=== PATIENT | male | born 1930 | race Caucasian/White ===

== ENCOUNTER 2019-03-23 00:52 | Observation (INO) ==
[2019-03-23] MEDS ORDERED: Naloxone 0.4 MG/ML INJ IVP PRN ×2 (03:42→04:10)
--- NOTE | 2019-03-23 03:43 | Internal Med History&Physical ---
<Charlie Sen S - Last Filed: 03/23/19 04:56> Date of Encounter: 03/23/19 Time of Encounter: 04:56 Internal Medicine - H&P: HPI Chief complaint: throwing up blood Admitted From: Emergency Dept Plans for Post Hospital Care: Home History of present illness: Mr. Miranda is a 88 year old male with PMH of stroke, HTN and HLD. His stroke was 5 yrs ago and he states that he hadn't seen a doctor in over 40 yrs. e is a osiel transfer with the chief complaint of vomiting blood. Pt reported that he had abrupt onset of coughing and blood started to come up. He states it was dark coffee ground in color. He has never had this before. He denies excessive nsaid or aspirin use. He denies history of PUD. He has had some coughing the last few days but denies any sputum production, fevers/chills. He fell on Tuesday and has had severe back pain since. He denies ever having previous GI workup, EGD or colonoscopy. He was found to have an occult (+) blood test at [facility] of gastric contents. Hemoglobin and hematocrit were stable at that time. He was transferred to [facility] for further workup. Past Med Surg Social Fam HX - Past Medical History Medical history: CVA, hyperlipidemia, hypertension - Social History Smoking Status: Never smoker Alcohol use: none Drug use: none Occupational status: previously employed Current living situation: Home - Independent Internal Medicine - H&P: Meds Allergy/AdvReac Type Severity Reaction Status Date / Time No Known Allergies Allergy Verified 03/23/19 04:30 All Systems PM: A 10-system review of systems was performed and is negative for pertinent findings except as documented above in the HPI. - Constitutional Constitutional: fatigue - EENT Eyes: no blurry vision, no change in vision Ears: no tinnitus Nose, mouth and throat: no bleeding gums, no epistaxis - Cardiovascular Cardiovascular ROS IM: no chest pain, no dyspnea, no dyspnea on exertion - Respiratory Respiratory: hemoptysis, no cough, no dyspnea, no dyspnea on exertion - Gastrointestinal Gastrointestinal: hematemesis, vomiting, no abdominal pain, no diarrhea, no hematochezia, no melena - Genitourinary Genitourinary ROS male: no dysuria, no hematuria - Musculoskeletal Musculoskeletal ROS IM: back pain, numbness, tingling - Integumentary Integumentary IM: no rash, no skin ulcer - Neurological Neurological ROS: focal weakness, weakness, no dizziness, no numbness, no tremor(s) - Hematologic/Lymphatic Hematologic/Lymphatic: no easy bleeding, no easy bruising - Constitutional General appearance: Present: mild distress, A&O X 3, pleasant, answers questions appropriately Exam: x - Head Head exam: Present: atraumatic, normocephalic - Eye Eye exam: Present: EOMI, sclera anicteric - ENT ENT exam: Present: mucous membranes dry Additional comments: dried blood in oral cavity and lips - Neck Neck exam general surgery: Present: supple, trachea midline - Respiratory Respiratory exam: Present: CTAB. Absent: accessory muscle use, prolonged expiratory phase, respiratory distress, rhonchi, stridor, wheezes, tachypnea - Cardiovascular Cardiovascular exam: Present: RRR, +S1, +S2. Absent: JVD - GI/Abdominal GI/Abdominal exam: Present: soft, no peritoneal signs. Absent: firm, guarding, mass, rebound, rigid, tenderness - Extremities Exam Extremities exam: Present: normal inspection, warm, radial pulses palpable and symmetrical. Absent: normal capillary refill (diminished capillary refill), mottling, pedal edema, tenderness - Back Exam Back exam: Present: tenderness - Neurological Exam Neurological exam: Present: alert, oriented X3. Absent: strengths equal and symetr throughout (decreased strength left more than right) - Psychiatric Psychiatric exam: Present: normal affect, normal mood - Skin Skin exam: Present: diaphoretic, dry, intact, warm Internal Med - H&P Results - Labs CBC & Chem 7: 03/23/19 04:19 03/23/19 04:19 - Assessment and Plan (1) Hematemesis Current Visit: Yes Status: Acute Assessment and plan: Pt transfered from [facility] for the chief complaint of throwing up blood - gastric occult blood was positive - H&H has remained stable, current hemoglobin 13.5 - INR 1.2 CT abdomen showed acute appearing mild compression fx of T12 vertebral body - probable small bowel ileus - probable constipation no evidence for bowel obstruction - probably bibasilar PNA, pt remains without symptoms and will not initiate abx at this time Plan: - 100cc/hr 0.9% NS - continue protonix drip - continue telemetry monitoring - stat type and cross - zofran prn nausea - consult to GI - transfuse for hgb <7 - FEN: NPO - DVT prophylaxis: scd - dispo: GI to see PTOT to see, pt lives home alone Qualifiers: Nausea presence: with nausea Qualified Code(s): K92.0 - Hematemesis (2) Hypertension Current Visit: No Status: Chronic Assessment and plan: on home anti-hypertensive. will con't when med reconciled. 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 will con't when med reconciled. Qualifiers: Hyperlipidemia type: unspecified Qualified Code(s): E78.5 - Hyperlipidemia, unspecified (5) DVT prophylaxis Current Visit: Yes Status: Acute Assessment and plan: scd (6) Back pain Current Visit: Yes Status: Acute Assessment and plan: Pt had fall on tuesday, acute appearing mild compression deformity of T12 vertebral body noted on CT scan. Pain control w oxycodone. Qualifiers: Back pain location: thoracic back pain Chronicity: acute Back pain laterality: midline Qualified Code(s): M54.6 - Pain in thoracic spine (7) Stroke Current Visit: No Status: Chronic Assessment and plan: Had past hx of stroke with left sided residual weakness. Qualifiers: CVA mechanism: unspecified Qualified Code(s): I63.9 - Cerebral infarction, unspecified (8) Thrombocytopenia Current Visit: Yes Status: Acute Assessment and plan: Platelets noted to be 126, no baseline available. (9) Renal cyst Current Visit: Yes Status: Acute Assessment and plan: noted on CT scan, 10mm left renal cyst - renal imaging recommended for further detail (10) Elevated LFTs Current Visit: Yes Status: Acute Assessment and plan: AST 334, ALT 86. Total bilirubin 2.4, indirect/direct not back yet. Obtain RUQ US and hepatitis profile. - Time Spent With Patient Total time spent is greater than 50% in coordination of care (as documented) at patient's floor/unit and/or counseling patient: 25 - 35 minutes <Alexsander Tubbs - Last Filed: 03/23/19 05:19> Date of Encounter: 03/23/19 Internal Medicine - H&P: HPI Chief complaint: dark vomit All Systems PM: A 10-system review of systems was performed and is negative for pertinent findings except as documented above in the HPI. - Constitutional Vitals: Temp Pulse Resp BP Pulse Ox 97.6 F 71 16 105/63 96 03/23/19 04:41 03/23/19 04:41 03/23/19 04:41 03/23/19 04:41 03/23/19 04:41 Internal Med - H&P Results - Labs CBC & Chem 7: 03/23/19 04:19 03/23/19 04:19 Labs: Short CBC 03/23/19 Range/Units 04:19 WBC 13.9 H (4.3-11.1) K/mcL Hgb 13.5 (12.9-16.9) g/dL Hct 39.4 (37.5-50.1) % Plt Count 126 L (140-400) K/mcL Neutrophils # 12.0 H (1.6-8.9) K/mcL BMP 03/23/19 04:19 Sodium 137 Potassium 3.9 Chloride 101 Carbon Dioxide 24 BUN 53 H Creatinine 1.69 H Glucose 143 H Calcium 8.6 Liver Function 03/23/19 Range/Units 04:19 Total Bilirubin 2.4 H (0.3-1.0) mg/dL AST 334 H (13-39) Units/L ALT 86 H (7-52) Units/L Alkaline Phosphatase 73 (34-104) Units/L Albumin 3.2 L (3.5-5.7) g/dL - Assessment and Plan (1) Hypertension Current Visit: No Status: Chronic Qualifiers: Hypertension type: essential hypertension Qualified Code(s): I10 - Essential (primary) hypertension (2) CONNIE (acute kidney injury) Current Visit: Yes Status: Acute (3) Hyperlipidemia Current Visit: No Status: Chronic Qualifiers: Hyperlipidemia type: unspecified Qualified Code(s): E78.5 - Hyperlipidemia, unspecified (4) Hematemesis Current Visit: Yes Status: Acute Qualifiers: Nausea presence: with nausea Qualified Code(s): K92.0 - Hematemesis (5) DVT prophylaxis Current Visit: Yes Status: Acute (6) Back pain Current Visit: Yes Status: Acute Qualifiers: Back pain location: thoracic back pain Chronicity: acute Back pain laterality: midline Qualified Code(s): M54.6 - Pain in thoracic spine (7) Stroke Current Visit: No Status: Chronic Qualifiers: CVA mechanism: unspecified Qualified Code(s): I63.9 - Cerebral infarction, unspecified (8) Thrombocytopenia Current Visit: Yes Status: Acute (9) Renal cyst Current Visit: Yes Status: Acute (10) Elevated LFTs Current Visit: Yes Status: Acute - Time Spent With Patient Total time spent is greater than 50% in coordination of care (as documented) at patient's floor/unit and/or counseling patient: - Attending Attestation I performed a history and physical exam of the patient and discussed management with the resident. I reviewed the resident's note and agree with the documented findings and plan of care. Edwin Miranda is an 88 year old man with hypertension, hyperlipidemia and cerebrovascular disease who was transferred from [facility] where he presented with coffee ground emesis x 1 day and gastric occult blood testing was positive. He was seen hemodynamically stable. He also complained of a fall a few days ago with subsequent back pain so imaging was done and it revealed a T12 compression fracture. They equally reported concerns of a pneumonia based on x-ray however on my evaluation of the x-ray, it is distorted and not adequate for interpretation. In addition, he reports no fever, chills, chest pain or productive cough concerning for pneumonia. Will manage him for upper GI bleed of unclear etiology. He is on aspirin 81mg daily but otherwise no other NSAIDs, antiplatelet or anticoagulants. Will keep NPO and consult GI for endoscopic evaluation. In the interim will keep on pantoprazole gtt. He may have a component of CONNIE therefore will fluid resuscitate noting his clinically dry state and recheck BMP. Family history reviewed and found non- contributory. JEREMIAH GILMORE.
[2019-03-23] MEDS ORDERED: OXYCODONE Oral CONC 10 MG/0.5 ML ORAL.SYG SL PRN (04:17)
[2019-03-23] MEDS ORDERED: Ondansetron 4 MG/2 ML VIAL IVP PRN (04:25)
[2019-03-23 04:36] LABS: Basophils % 0.1 %; Hematocrit 39.4 % (37.5-50.1); Hemoglobin 13.5 g/dL (12.9-16.9); Immature Granulocytes % 0.9 % (0-4); Lymphocytes # 0.5 K/mcL (0.6-4.6); Lymphocytes % 3.8 %; Mean Corpuscular HGB Conc 34.3 g/dL (31.6-35.5); Mean Corpuscular Hemoglobin 30.8 pg (28.0-33.3); Mean Platelet Volume 10.5 fL (9.4-12.4); Monocytes # 1.2 K/mcL (0.0-1.3); Monocytes % 8.3 %; Platelet Count 126 K/mcL (140-400); Red Blood Count 4.38 M/mcL (4.19-5.50); Red Cell Distribution Width 13.2 % (11.5-14.5); Segmented Neutrophils % 86.9 %
[2019-03-23 04:43] LABS: INR 1.2; Prothrombin Time 13.5 Seconds (9.4-12.1)
[2019-03-23 04:52] LABS: Albumin 3.2 g/dL (3.5-5.7); Albumin/Globulin Ratio 0.9 (1.1-2.2); Bilirubin,Total 2.4 mg/dL (0.3-1.0); Calcium 8.6 mg/dL (8.6-10.3); Globulin 3.6 g/dL (2.4-3.5); Potassium 3.9 mEq/L (3.5-5.1); Total Protein 6.8 g/dL (6.4-8.9)
[2019-03-23] MEDS: 0.9 % Sodium Chloride 1,000 ML IVC SCH ×2 (06:00→20:11)
[2019-03-23] MEDS ORDERED: Pantoprazole 40 MG VIAL IVP SCH (06:00)
[2019-03-23] MEDS: Pantoprazole 40 MG in 0.9 % Sodium Chloride Mini Bag 100 ML IVC SCH ×4 (06:01→19:25)
[2019-03-23 08:07] LABS: Hepatitis B Surface Antigen Nonreactive (Nonreactive)
[2019-03-23 08:36] LABS: Hepatitis B Core IgM Nonreactive (Nonreactive)
[2019-03-23 08:37] LABS: Hepatitis C Virus Antibody Nonreactive (Nonreactive)
[2019-03-23 08:45] LABS: Hepatitis A Antibody IgM Reactive (Nonreactive)
--- NOTE | 2019-03-23 13:34 | Gastroenterology Consult Note ---
Date of Encounter: 03/23/19 Time of Encounter: 10:55 - Assessment and plan (1) Coffee ground emesis Current Visit: Yes Status: Acute Assessment and plan: Gastric occult blood test positive at [facility]. Hgb 13.5 with MCV 90 on admission this AM. No further episodes. Continue to monitor CBC and transfer PRBC as needed. Continue PPI. Plan for EGD as outpatient. If patient remains in hospital next week, consider EGD at that time. (2) Hepatitis A Current Visit: Yes Status: Acute Assessment and plan: Positive Hep A. Check liver US. Full clinical and biochemical recovery is observed within two to three months in 85 percent of patients, and complete recovery is observed by six months in nearly all patients. HAV infection does not become chronic, and individuals cannot become reinfected after recovering from infection. Up to 10 percent of patients experience a relapse of symptoms during the six mo nths after acute illness. The duration of clinical relapse is generally less than three weeks, although biochemical relapse may last as long as 12 months. HAV can be recovered from stool during relapse episodes, so such patients should be considered infectious. - HAV infection is usually a self-limited illness. - Fulminant hepatic failure occurs in less than 1 percent of cases. - Infection confers lifelong immunity. - Handwashing (including after using the bathroom, changing diapers, and before preparing or eating foods). - Heating foods appropriately (the virus can be inactivated by heating to >185 F for one minute). Cooked foods can transmit HAV if the temperature during food preparation is inadequate to kill the virus or if food is contaminated after cooking. - Chlorine, iodine, and disinfecting solutions (household bleach 1:100 dilution) are effective for inactivation of HAV. Qualifiers: Hepatic coma status: without hepatic coma Qualified Code(s): B15.9 - Hepatitis A without hepatic coma - Time Spent With Patient Total time spent is greater than 50% in coordination of care (as documented) at patient's floor/unit and/or counseling patient: GI History of Present Illness - Data of Consult Patient: new to practice Consult date: 03/23/19 Requesting Physician: Roland Grimes MD - Consult Narrative Reason for consult: Hematemesis History of present illness: Mr. Miranda is a 88 year old male with PMHx of CVA 5 years ago, HLD, HTN who was transferred from [facility] with complaint of vomiting blood. Patient reports coughing and then vomiting dark coffee-ground material. No further episodes reported. CT at [facility] with probable small bowel ileus, constipation, bibasilar pneumonia. Gastric occult blood test positive at [facility]. Hgb 13.5 with MCV 90 on admission this AM. LFTs elevated with TB 2.4, AST 334, ALT 86, hepatitis profile positive for Hepatitis A. Patient reports he does not eat out at restaurants very often. Procedures: None NSAIDs: None Anticoagulation: None Past Med Surg Social Fam HX - Past Medical History Medical history: CVA, hyperlipidemia, hypertension - Past Surgical History Surgical History: cataract - Social History Smoking Status: Never smoker Alcohol use: none Drug use: none - Gastrointestinal Gastrointestinal: Present: as per HPI - Constitutional Constitutional: as per HPI - EENT Eyes: as per HPI Ears: Present: as per HPI Nose, mouth and throat: Present: as per HPI - Cardiovascular Cardiovascular ROS: Present: as per HPI - Respiratory Respiratory IM: Present: as per HPI - Genitourinary Genitourinary: Absent: change in color, Urinary frequency - Neurological ROS Neurological GI: Present: as per HPI - Hematologic/Lymphatic Hematologic/Lymphatic pediatric: Present: as per HPI - Musculoskeletal Musculoskeletal ROS GI: Present: as per HPI - Integumentary Integumentary GI: Present: as per HPI - Psychiatric ROS Psychiatric GI: Present: as per HPI - Endocrine Endocrine IM: Present: as per HPI - Constitutional Vitals: Temp Pulse Resp BP Pulse Ox 97.6 F 62 16 102/48 95 03/23/19 10:24 03/23/19 10:24 03/23/19 10:24 03/23/19 10:24 03/23/19 10:24 General appearance: Present: cooperative, A&O X 3, no acute distress, answers questions appropriately - Head Head exam: Present: atraumatic, normocephalic - Eye Eye exam: Present: normal appearance, sclera anicteric - ENT ENT exam: Present: mucous membranes dry - Neck Neck exam general surgery: Present: normal inspection, trachea midline - Respiratory Respiratory exam: Present: decreased breath sounds, CTAB. Absent: rales, rhonchi - Cardiovascular Cardiovascular exam: Present: RRR, +S1, +S2 - GI/Abdominal GI/Abdominal exam: Present: soft, no peritoneal signs. Absent: distended, firm, guarding, tenderness - Rectal Rectal exam: Present: deferred - Extremities Exam Extremities exam: Present: warm - Neurological Exam Neurological exam: Present: no focal deficits - Psychiatric Psychiatric exam: Present: normal affect, normal mood - Skin Skin exam: Present: dry, intact, normal color, warm Results - Labs CBC & Chem 7: 03/23/19 04:19 03/23/19 04:19 Labs: Last Result 03/23/19 04:19 Calcium 8.6 Entire Visit 03/23/19 03/23/19 03/23/19 04:19 04:19 04:19 Hgb 13.5 Hct 39.4 PT 13.5 H Total Bilirubin 2.4 H AST 334 H ALT 86 H - ABG ABG results: PT/INR, D-dimer PT 13.5 Seconds (9.4-12.1) H 03/23/19 04:19 Consult Discharge Plan - Plan Referrals: Castro Souza DO [Primary Care Provider] -
--- NOTE | 2019-03-23 17:02 | Internal Med Progress Note ---
<Fabrice Mg - Last Filed: 03/23/19 17:00> Hospitalist Progress Note - Encounter Date of Encounter: 03/23/19 Time of Encounter: 13:30 - Subjective Interval History: Patient seen and examined at bedside; states that he is feeling well. He has no complaints. He tolerated his lunch well, which consisted of broth and Jell-O. Denied having any vomiting or nausea. Denies having any abdominal pain. Also denies any subsequent episodes of coffee-ground emesis after his initial presentation. GI is currently following; recommends an EGD in the outpatient setting. We will perform a liver ultrasound due to positive hepatitis A. We will repeat a.m. labs to assess kidney function and hemoglobin. Currently on pantoprazole drip. - Exam Vitals: Temp Pulse Resp BP Pulse Ox 97.7 F 68 16 114/66 96 03/23/19 16:23 03/23/19 16:23 03/23/19 16:23 03/23/19 16:23 03/23/19 16:23 Exam: General: A&O X3, conversant, no acute distress Head: atraumatic, normocephalic Eye: PERRL, EOMI, conjuntiva pink, sclera anicteric Neck: Supple, trachea midline; No lymphadenopathy Respiratory: CTAB. No accessory muscle use, wheezes, rales, or rhonchi Cardiovascular: RRR, +S1, +S2; no murmurs, rubs, gallops Abdomen: Soft, nontender Extremities: warm, radial pulses palpable and symmetrical Psychiatric: Normal affect, normal mood Skin: Dry, intact - Assessment and Plan (1) Coffee ground emesis Current Visit: Yes Status: Acute Assessment and Plan: Assessment: - Initially presented with a complaint of coffee-ground emesis - Initially presented to the [facility]; gastric occult blood test was positive - Hemoglobin is 13.5 - Patient denies having any episodes of vomiting or other signs of bleeding Plan: - GI is currently following; recommend EGD as an outpatient - Clear liquid diet; advance diet as tolerated - Continue Pantoprazole drip - Zofran 4 mg IV every 6 hours when necessary - Repeat a.m. labs (2) CONNIE (acute kidney injury) Current Visit: Yes Status: Acute Assessment and Plan: - Etiology unknown; possibly prerenal due to volume loss from vomiting - Continue IV fluid hydration - Repeat a.m. labs - If no improvement, we will initiate full CONNIE workup (3) Hepatitis A Current Visit: Yes Status: Acute Assessment and Plan: - Hepatitis screen positive for hepatitis A - Per the recommendations of GI, will check liver ultrasound - Time Spent with Patient Total time spent is greater than 50% in coordination of care (as documented) at patient's floor/unit and/or counseling patient: Internal Medicine: Result - Labs CBC & Chem 7: 03/23/19 04:19 03/23/19 04:19 Labs: Short CBC 03/23/19 Range/Units 04:19 WBC 13.9 H (4.3-11.1) K/mcL Hgb 13.5 (12.9-16.9) g/dL Hct 39.4 (37.5-50.1) % Plt Count 126 L (140-400) K/mcL Neutrophils # 12.0 H (1.6-8.9) K/mcL BMP 03/23/19 04:19 Sodium 137 Potassium 3.9 Chloride 101 Carbon Dioxide 24 BUN 53 H Creatinine 1.69 H Glucose 143 H Calcium 8.6 Liver Function 03/23/19 Range/Units 04:19 Total Bilirubin 2.4 H (0.3-1.0) mg/dL AST 334 H (13-39) Units/L ALT 86 H (7-52) Units/L Alkaline Phosphatase 73 (34-104) Units/L Albumin 3.2 L (3.5-5.7) g/dL - ABG Interpretation ABG results: PT/INR, D-dimer PT 13.5 Seconds (9.4-12.1) H 03/23/19 04:19 - Impressions Impressions Abdomen Ultrasound 03/23/19 12:30 IMPRESSION: Unremarkable abdominal ultrasound. D/ / Elmo Alexander MD / Elmo Alexander MD Interpreting Provider: Elmo Alexander MD Consult Discharge Plan - Plan Referrals: Castro Souza DO [Primary Care Provider] - <Roland Grimes - Last Filed: 03/23/19 17:34> Hospitalist Progress Note - Encounter Date of Encounter: 03/23/19 - Exam Vitals: Temp Pulse Resp BP Pulse Ox 97.7 F 68 16 114/66 96 03/23/19 16:23 03/23/19 16:23 03/23/19 16:23 03/23/19 16:23 03/23/19 16:23 - Assessment and Plan (1) Hypertension Current Visit: No Status: Chronic (2) CONNIE (acute kidney injury) Current Visit: Yes Status: Acute (3) Hyperlipidemia Current Visit: No Status: Chronic (4) Hematemesis Current Visit: Yes Status: Acute (5) DVT prophylaxis Current Visit: Yes Status: Acute (6) Back pain Current Visit: Yes Status: Acute (7) Stroke Current Visit: No Status: Chronic (8) Thrombocytopenia Current Visit: Yes Status: Acute (9) Renal cyst Current Visit: Yes Status: Acute (10) Elevated LFTs Current Visit: Yes Status: Acute - Time Spent with Patient Total time spent is greater than 50% in coordination of care (as documented) at patient's floor/unit and/or counseling patient: Internal Medicine: Result - Labs CBC & Chem 7: 03/23/19 04:19 03/23/19 04:19 Labs: Short CBC 03/23/19 Range/Units 04:19 WBC 13.9 H (4.3-11.1) K/mcL Hgb 13.5 (12.9-16.9) g/dL Hct 39.4 (37.5-50.1) % Plt Count 126 L (140-400) K/mcL Neutrophils # 12.0 H (1.6-8.9) K/mcL BMP 03/23/19 04:19 Sodium 137 Potassium 3.9 Chloride 101 Carbon Dioxide 24 BUN 53 H Creatinine 1.69 H Glucose 143 H Calcium 8.6 Liver Function 03/23/19 Range/Units 04:19 Total Bilirubin 2.4 H (0.3-1.0) mg/dL AST 334 H (13-39) Units/L ALT 86 H (7-52) Units/L Alkaline Phosphatase 73 (34-104) Units/L Albumin 3.2 L (3.5-5.7) g/dL - ABG Interpretation ABG results: PT/INR, D-dimer PT 13.5 Seconds (9.4-12.1) H 03/23/19 04:19 - Impressions Impressions Abdomen Ultrasound 03/23/19 12:30 IMPRESSION: Unremarkable abdominal ultrasound. D/ / Elmo Alexander MD / Elmo Alexander MD Interpreting Provider: Elmo Alexander MD - Attending Attestation I examined this patient and my medical decision-making was reviewed with the Resident Physician. I agree with the documented findings, disposition and treatment plan as described except to the extent set forth below. <Fabrice Mg - Last Filed: 03/23/19 17:00> (3) Hepatitis A Qualifiers: Hepatic coma status: without hepatic coma Qualified Code(s): B15.9 - Hepatitis A without hepatic coma <SydneyElis Iris - Last Filed: 03/23/19 17:34> (1) Hypertension Qualifiers: Hypertension type: essential hypertension Qualified Code(s): I10 - Essential (primary) hypertension (3) Hyperlipidemia Qualifiers: Hyperlipidemia type: unspecified Qualified Code(s): E78.5 - Hyperlipidemia, unspecified (4) Hematemesis Qualifiers: Nausea presence: with nausea Qualified Code(s): K92.0 - Hematemesis (6) Back pain Qualifiers: Back pain location: thoracic back pain Chronicity: acute Back pain lateralit y: midline Qualified Code(s): M54.6 - Pain in thoracic spine (7) Stroke Qualifiers: CVA mechanism: unspecified Qualified Code(s): I63.9 - Cerebral infarction, unspecified
--- NOTE | 2019-03-23 17:38 | Electrocardiograph Report ---
[place] [id number] Test Date: 2019-03-23 Pat Name: Edwin Miarnda Department: 115 Room: 3A Gender: M [employer] Operator: : 1930 Requested By: Charlie Sen Order Number: [id number] Reading MD: Renetta Purvis Measurements Intervals [place] Rate: 89 P: 19 KS: 181 QRS: -85 QRSD: 165 T: 29 QT: 414 QTc: 460 Interpretive Statements SINUS RHYTHM WITH FREQUENT VENTRICULAR PREMATURE COMPLEXES RIGHT BUNDLE BRANCH BLOCK LEFT ANTERIOR FASCICULAR BLOCK Electronically Signed On 03-23-2019 17:37:05 EDT by Renetta Purvis
[2019-03-24] MEDS: Pantoprazole 40 MG in 0.9 % Sodium Chloride Mini Bag 100 ML IVC SCH ×3 (00:52→12:27)
[2019-03-24] MEDS: 0.9 % Sodium Chloride 1,000 ML IVC SCH ×2 (06:05→20:22)
[2019-03-24 08:34] LABS: Basophils % 0.3 %; Eosinophils % 1.7 %; Hematocrit 32.2 % (37.5-50.1); Hemoglobin 10.8 g/dL (12.9-16.9); Immature Granulocytes % 0.3 % (0-4); Immature Platelets 3.5 % (1.1-6.1); Lymphocytes % 11.2 %; Mean Corpuscular HGB Conc 33.5 g/dL (31.6-35.5); Mean Corpuscular Hemoglobin 30.6 pg (28.0-33.3); Mean Corpuscular Volume 91.2 fL (83.0-100.0); Mean Platelet Volume 10.2 fL (9.4-12.4); Monocytes % 12.2 %; Platelet Count 104 K/mcL (140-400); Red Blood Count 3.53 M/mcL (4.19-5.50); Red Cell Distribution Width 13.3 % (11.5-14.5); Segmented Neutrophils % 74.3 %
[2019-03-24 08:35] LABS: Eosinophils # 0.1 K/mcL (0.0-0.6); Lymphocytes # 0.7 K/mcL (0.6-4.6); Monocytes # 0.7 K/mcL (0.0-1.3); Neutrophils # 4.5 K/mcL (1.6-8.9)
[2019-03-24 08:48] LABS: BUN/Creatinine Ratio 35 (6-26); Blood Urea Nitrogen 47 mg/dL (8-23); Calcium 7.5 mg/dL (8.6-10.3); Carbon Dioxide 25 mEq/L (23-29); Chloride 104 mEq/L (98-107); Glucose 98 mg/dL (70-105); Osmolality,Calculated 292 (280-300); Potassium 3.5 mEq/L (3.5-5.1); Sodium 135 mEq/L (136-145); eGFR For Non-African Americans 50 (> 60)
[2019-03-24 11:21] LABS: Hemoglobin 11.1 g/dL (12.9-16.9)
[2019-03-24] MEDS: Methyl Salicylate/Menthol 28 GM TUBE TP PRN (15:30)
[2019-03-24 16:18] LABS: Hematocrit 33.4 % (37.5-50.1); Hemoglobin 11.1 g/dL (12.9-16.9)
--- NOTE | 2019-03-24 18:23 | Internal Med Progress Note ---
<Fabrice Mg - Last Filed: 03/24/19 18:22> Hospitalist Progress Note - Encounter Date of Encounter: 03/24/19 Time of Encounter: 10:33 - Subjective Interval History: Patient was seen and examined at bedside today. He just came back from his liver ultrasound. He states that he is feeling well. Denies having any nausea, vomiting, or abdominal pain. He denies having any signs of bleeding. Patient tolerated his liquid diet well, we will advance to full liquid diet today. His renal function is improving; creatinine today is 1.34 from 1.69. No complaints at this time. - Exam Vitals: Temp Pulse Resp BP Pulse Ox 98.0 F 66 15 117/70 95 03/24/19 14:11 03/24/19 14:11 03/24/19 14:11 03/24/19 14:11 03/24/19 14:11 Exam: General: A&O X3, conversant, no acute distress Head: atraumatic, normocephalic Eye: PERRL, EOMI, conjuntiva pink, sclera anicteric Neck: Supple, trachea midline; No lymphadenopathy Respiratory: CTAB. No accessory muscle use, wheezes, rales, or rhonchi Cardiovascular: RRR, +S1, +S2; no murmurs, rubs, gallops Abdomen: Soft, nontender Extremities: warm, radial pulses palpable and symmetrical Psychiatric: Normal affect, normal mood Skin: Dry, intact - Assessment and Plan (1) Coffee ground emesis Current Visit: Yes Status: Acute Assessment and Plan: - Initially presented with a complaint of coffee-ground emesis - Initially presented to the [facility]; gastric occult blood test was positive - Patient denies having any episodes of vomiting or other signs of bleeding - Hemoglobin appears stable at this time Plan: - GI recommend EGD as an outpatient - Diet will be advanced to full liquid diet today - Pantoprazole drip discontinued; switched to oral omeprazole - Zofran PRN - Repeat a.m. labs (2) CONNIE (acute kidney injury) Current Visit: Yes Status: Acute Assessment and Plan: - Etiology unknown; possibly prerenal due to volume loss from vomiting - Continue IV fluid hydration - Improving; creatinine has decreased to 1.34 from 1.69 (3) Hepatitis A Current Visit: Yes Status: Acute Assessment and Plan: - Hepatitis screen positive for hepatitis A - Received liver ultrasound earlier this morning; results pending - Time Spent with Patient Total time spent is greater than 50% in coordination of care (as documented) at patient's floor/unit and/or counseling patient: Internal Medicine: Result - Labs CBC & Chem 7: 03/24/19 16:05 03/24/19 07:34 Labs: Short CBC 03/24/19 03/24/19 03/24/19 Range/Units 07:34 11:12 16:05 WBC 6.1 D (4.3-11.1) K/mcL Hgb 10.8 L D 11.1 L 11.1 L (12.9-16.9) g/dL Hct 32.2 L 33.0 L 33.4 L (37.5-50.1) % Plt Count 104 L (140-400) K/mcL Neutrophils # 4.5 (1.6-8.9) K/mcL BMP 03/24/19 07:34 Sodium 135 L Potassium 3.5 Chloride 104 Carbon Dioxide 25 BUN 47 H Creatinine 1.34 H Glucose 98 Calcium 7.5 L - ABG Interpretation ABG results: PT/INR, D-dimer PT 13.5 Seconds (9.4-12.1) H 03/23/19 04:19 - Impressions Impressions Liver Ultrasound 03/24/19 00:00 IMPRESSION: 1. Cholelithiasis. Mild gallbladder wall thickening could be related to reported adjacent liver disease but could also be seen with cholecystitis, though other secondary sonographic findings of cholecystitis are present. Consider further evaluation with a nuclear medicine hepatobiliary scan if there are clinical findings of cholecystitis. 2. Minimal extrahepatic biliary dilation, appearing unchanged since 03/22/2019. While most likely related to age, choledocholithiasis is not excluded. Consider MRCP if there are clinical findings of cholestasis. 3. Normal sonographic appearance of the liver. D/ / Joselito Stout MD / Joselito Stout MD Interpreting Provider: Joselito Stout MD Consult Discharge Plan - Plan Referrals: Castro Souza, [Primary Care Provider] - <Roland Grimes - Last Filed: 03/24/19 21:11> Hospitalist Progress Note - Encounter Date of Encounter: 03/24/19 - Exam Vitals: Temp Pulse Resp BP Pulse Ox 98.3 F 76 14 136/66 97 03/24/19 19:49 03/24/19 19:49 03/24/19 19:49 03/24/19 19:49 03/24/19 19:49 - Assessment and Plan (1) Hypertension Current Visit: No Status: Chronic (2) CONNIE (acute kidney injury) Current Visit: Yes Status: Acute (3) Hyperlipidemia Current Visit: No Status: Chronic (4) Hematemesis Current Visit: Yes Status: Acute (5) DVT prophylaxis Current Visit: Yes Status: Acute (6) Back pain Current Visit: Yes Status: Acute (7) Stroke Current Visit: No Status: Chronic (8) Thrombocytopenia Current Visit: Yes Status: Acute (9) Renal cyst Current Visit: Yes Status: Acute (10) Elevated LFTs Current Visit: Yes Status: Acute - Time Spent with Patient Total time spent is greater than 50% in coordination of care (as documented) at patient's floor/unit and/or counseling patient: Internal Medicine: Result - Labs CBC & Chem 7: 03/24/19 16:05 03/24/19 07:34 Labs: Short CBC 03/24/19 03/24/19 03/24/19 Range/Units 07:34 11:12 16:05 WBC 6.1 D (4.3-11.1) K/mcL Hgb 10.8 L D 11.1 L 11.1 L (12.9-16.9) g/dL Hct 32.2 L 33.0 L 33.4 L (37.5-50.1) % Plt Count 104 L (140-400) K/mcL Neutrophils # 4.5 (1.6-8.9) K/mcL BMP 03/24/19 07:34 Sodium 135 L Potassium 3.5 Chloride 104 Carbon Dioxide 25 BUN 47 H Creatinine 1.34 H Glucose 98 Calcium 7.5 L - ABG Interpretation ABG results: PT/INR, D-dimer PT 13.5 Seconds (9.4-12.1) H 03/23/19 04:19 - Impressions Impressions Liver Ultrasound 03/24/19 00:00 IMPRESSION: 1. Cholelithiasis. Mild gallbladder wall thickening could be related to reported adjacent liver disease but could also be seen with cholecystitis, though other secondary sonographic findings of cholecystitis are present. Consider further evaluation with a nuclear medicine hepatobiliary scan if there are clinical findings of cholecystitis. 2. Minimal extrahepatic biliary dilation, appearing unchanged since 03/22/2019. While most likely related to age, choledocholithiasis is not excluded. Consider MRCP if there are clinical findings of cholestasis. 3. Normal sonographic appearance of the liver. D/ / Joselito Stout MD / Joselito Stout MD Interpreting Provider: Joselito Stout MD Thoracic Spine X-Ray 03/24/19 13:37 IMPRESSION: Approximately 60% anterior wedging of T12 progressed comparing with recent comparison studies. D/ / Jonah Ni / Jonah Ni Interpreting Provider: Jonah Ni - Attending Attestation I examined this patient and my medical decision-making was reviewed with the Resident Physician. I agree with the documented findings, disposition and taryn atment plan as described except to the extent set forth below. <Fabrice Mg - Last Filed: 03/24/19 18:22> (3) Hepatitis A Qualifiers: Hepatic coma status: without hepatic coma Qualified Code(s): B15.9 - Hepatitis A without hepatic coma <Roland Grimes - Last Filed: 03/24/19 21:11> (1) Hypertension Qualifiers: Hypertension type: essential hypertension Qualified Code(s): I10 - Essential (primary) hypertension (3) Hyperlipidemia Qualifiers: Hyperlipidemia type: unspecified Qualified Code(s): E78.5 - Hyperlipidemia, unspecified (4) Hematemesis Qualifiers: Nausea presence: with nausea Qualified Code(s): K92.0 - Hematemesis (6) Back pain Qualifiers: Back pain location: thoracic back pain Chronicity: acute Back pain laterality: midline Qualified Code(s): M54.6 - Pain in thoracic spine (7) Stroke Qualifiers: CVA mechanism: unspecified Qualified Code(s): I63.9 - Cerebral infarction, unspecified
[2019-03-24 22:44] LABS: Hematocrit 35.6 % (37.5-50.1); Hemoglobin 11.9 g/dL (12.9-16.9)
[2019-03-25] MEDS: 0.9 % Sodium Chloride 1,000 ML IVC SCH (06:04)
[2019-03-25 07:06] LABS: Alanine Aminotransferase 145 Units/L (7-52); Albumin 2.6 g/dL (3.5-5.7); Albumin/Globulin Ratio 0.8 (1.1-2.2); Alkaline Phosphatase 57 Units/L (34-104); Aspartate Amino Transferase 436 Units/L (13-39); BUN/Creatinine Ratio 27 (6-26); Bilirubin,Direct 0.6 mg/dL (0.0-0.2); Bilirubin,Indirect 0.7 mg/dL (0.0-1.2); Bilirubin,Total 1.3 mg/dL (0.3-1.0); Blood Urea Nitrogen 28 mg/dL (8-23); Calcium 7.8 mg/dL (8.6-10.3); Carbon Dioxide 25 mEq/L (23-29); Chloride 106 mEq/L (98-107); Globulin 3.1 g/dL (2.4-3.5); Glucose 100 mg/dL (70-105); Osmolality,Calculated 288 (280-300); Potassium 3.6 mEq/L (3.5-5.1); Sodium 136 mEq/L (136-145); Total Protein 5.7 g/dL (6.4-8.9); eGFR For Non-African Americans > 60 (> 60)
[2019-03-25] MEDS: Methyl Salicylate/Menthol 28 GM TUBE TP PRN (09:50)
--- NOTE | 2019-03-25 14:41 | Internal Med Progress Note ---
<Fabrice Mg - Last Filed: 03/25/19 14:39> Hospitalist Progress Note - Encounter Date of Encounter: 03/25/19 Time of Encounter: 14:00 - Subjective Interval History: Orthopedics is consulted for possible brace placement for compression fracture. He states that as long as he lays still, he does not experience pain. His pain is mainly made worse when he turns from side to side. Overall, he states that he is feeling well. He denies nausea, vomiting, fever, chills, or weakness. States that he is tolerated food well. - Exam Vitals: Temp Pulse Resp BP Pulse Ox 98.0 F 60 15 156/64 98 03/25/19 10:36 03/25/19 10:36 03/25/19 10:36 03/25/19 10:36 03/25/19 10:36 Exam: General: A&O X3, conversant, no acute distress Head: atraumatic, normocephalic Eye: PERRL, EOMI, conjuntiva pink, sclera anicteric Neck: Supple, trachea midline; No lymphadenopathy Respiratory: CTAB. No accessory muscle use, wheezes, rales, or rhonchi Cardiovascular: RRR, +S1, +S2; no murmurs, rubs, gallops Abdomen: Soft, nontender Extremities: warm, radial pulses palpable and symmetrical Psychiatric: Normal affect, normal mood Skin: Dry, intact - Assessment and Plan (1) Coffee ground emesis Current Visit: Yes Status: Acute Assessment and Plan: - Initially presented with a complaint of coffee-ground emesis - Initially presented to the [facility]; gastric occult blood test was positive - Patient denies having any episodes of vomiting or other signs of bleeding - Hemoglobin appears stable at this time Plan: - GI recommend EGD as an outpatient - Diet will be advanced to full liquid diet today - Oral omeprazole - Zofran PRN (2) Compression fx, thoracic spine Current Visit: Yes Status: Acute Assessment and Plan: - X-ray of thoracic spine on 03/24/19 demonstrated the following: Approximately 60% anterior wedging of T12 progressed comparing with recent comparison studies - Orthopedics consulted for brace placement (3) CONNIE (acute kidney injury) Current Visit: Yes Status: Acute Assessment and Plan: - Etiology unknown; possibly prerenal due to volume loss from vomiting - Continue IV fluid hydration (4) Hepatitis A Current Visit: Yes Status: Acute Assessment and Plan: - Hepatitis screen positive for hepatitis A - Time Spent with Patient Total time spent is greater than 50% in coordination of care (as documented) at patient's floor/unit and/or counseling patient: Internal Medicine: Result - Labs CBC & Chem 7: 03/24/19 22:30 03/25/19 06:19 Labs: Short CBC 03/24/19 03/24/19 Range/Units 16:05 22:30 Hgb 11.1 L 11.9 L (12.9-16.9) g/dL Hct 33.4 L 35.6 L (37.5-50.1) % BMP 03/25/19 06:19 Sodium 136 Potassium 3.6 Chloride 106 Carbon Dioxide 25 BUN 28 H Creatinine 1.03 Glucose 100 Calcium 7.8 L Liver Function 03/25/19 Range/Units 06:19 Total Bilirubin 1.3 H (0.3-1.0) mg/dL Direct Bilirubin 0.6 H (0.0-0.2) mg/dL AST 436 H (13-39) Units/L ALT 145 H (7-52) Units/L Alkaline Phosphatase 57 (34-104) Units/L Albumin 2.6 L (3.5-5.7) g/dL - ABG Interpretation ABG results: PT/INR, D-dimer PT 13.5 Seconds (9.4-12.1) H 03/23/19 04:19 - Impressions Impressions Thoracic Spine X-Ray 03/24/19 13:37 IMPRESSION: Approximately 60% anterior wedging of T12 progressed comparing with recent comparison studies. D/ / Jonah Ni / Jonah Ni Interpreting Provider: Jonah Ni Consult Discharge Plan - Plan Referrals: Castro Souza DO [Primary Care Provider] - <Roland Grimes - Last Filed: 03/25/19 15:47> Hospitalist Progress Note - Encounter Date of Encounter: 03/25/19 - Exam Vitals: Temp Pulse Resp BP Pulse Ox 98.3 F 61 15 125/69 96 03/25/19 15:32 03/25/19 15:32 03/25/19 15:32 03/25/19 15:32 03/25/19 15:32 - Assessment and Plan (1) Hypertension Current Visit: No Status: Chronic (2) CONNIE (acute kidney injury) Current Visit: Yes Status: Acute (3) Hyperlipidemia Current Visit: No Status: Chronic (4) Hematemesis Current Visit: Yes Status: Acute (5) DVT prophylaxis Current Visit: Yes Status: Acute (6) Back pain Current Visit: Yes Status: Acute (7) Stroke Current Visit: No Status: Chronic (8) Thrombocytopenia Current Visit: Yes Status: Acute (9) Renal cyst Current Visit: Yes Status: Acute (10) Elevated LFTs Current Visit: Yes Status: Acute - Time Spent with Patient Total time spent is greater than 50% in coordination of care (as documented) at patient's floor/unit and/or counseling patient: Internal Medicine: Result - Labs CBC & Chem 7: 03/24/19 22:30 03/25/19 06:19 Labs: Short CBC 03/24/19 03/24/19 Range/Units 16:05 22:30 Hgb 11.1 L 11.9 L (12.9-16.9) g/dL Hct 33.4 L 35.6 L (37.5-50.1) % BMP 03/25/19 06:19 Sodium 136 Potassium 3.6 Chloride 106 Carbon Dioxide 25 BUN 28 H Creatinine 1.03 Glucose 100 Calcium 7.8 L Liver Function 03/25/19 Range/Units 06:19 Total Bilirubin 1.3 H (0.3-1.0) mg/dL Direct Bilirubin 0.6 H (0.0-0.2) mg/dL AST 436 H (13-39) Units/L ALT 145 H (7-52) Units/L Alkaline Phosphatase 57 (34-104) Units/L Albumin 2.6 L (3.5-5.7) g/dL - ABG Interpretation ABG results: PT/INR, D-dimer PT 13.5 Seconds (9.4-12.1) H 03/23/19 04:19 - Impressions Impressions Thoracic Spine X-Ray 03/24/19 13:37 IMPRESSION: Approximately 60% anterior wedging of T12 progressed comparing with recent comparison studies. D/ / Jonah Ni / Jonah Ni Interpreting Provider: Jonah Ni - Attending Attestation I examined this patient and my medical decision-making was reviewed with the Resident Physician. I agree with the documented findings, disposition and treatment plan as described except to the extent set forth below. <Fabrice Mg - Last Filed: 03/25/19 14:39> (4) Hepatitis A Qualifiers: Hepatic coma status: without hepatic coma Qualified Code(s): B15.9 - Hepatitis A without hepatic coma <Roland Grimes - Last Filed: 03/25/19 15:47> (1) Hypertension Qualifiers: Hypertension type: essential hypertension Qualified Code(s): I10 - Essential (primary) hypertension (3) Hyperlipidemia Qualifiers: Hyperlipidemia type: unspecified Qualified Code(s): E78.5 - Hyperlipidemia, unspecified (4) Hematemesis Qualifiers: Nausea presence: with nausea Qualified Code(s): K92.0 - Hematemesis (6) Back pain Qualifiers: Back pain location: thoracic back pain Chronicity: acute Back pain laterality: midline Qualified Code(s): M54.6 - Pain in thoracic spine (7) Stroke Qualifiers: CVA mechanism: unspecified Qualified Code(s): I63.9 - Cerebral infarction, unspecified
[2019-03-26] MEDS: *HR* Enoxaparin 40 MG/0.4 ML SYRINGE SQ SCH (05:21)
[2019-03-26 07:18] LABS: Basophils % 0.8 %
[2019-03-26 07:20] LABS: Eosinophils # 0.2 K/mcL (0.0-0.6); Eosinophils % 3.9 %; Hematocrit 31.9 % (37.5-50.1); Immature Granulocytes % 0.9 % (0-4); Lymphocytes # 0.7 K/mcL (0.6-4.6); Lymphocytes % 12.4 %; Mean Corpuscular HGB Conc 34.5 g/dL (31.6-35.5); Mean Corpuscular Hemoglobin 31.2 pg (28.0-33.3); Mean Corpuscular Volume 90.4 fL (83.0-100.0); Mean Platelet Volume 9.9 fL (9.4-12.4); Monocytes # 0.7 K/mcL (0.0-1.3); Monocytes % 13.1 %; Neutrophils # 3.7 K/mcL (1.6-8.9); Platelet Count 105 K/mcL (140-400); Red Blood Count 3.53 M/mcL (4.19-5.50); Red Cell Distribution Width 13.1 % (11.5-14.5); Segmented Neutrophils % 68.9 %
[2019-03-26 07:39] LABS: BUN/Creatinine Ratio 22 (6-26); Blood Urea Nitrogen 18 mg/dL (8-23); Calcium 7.8 mg/dL (8.6-10.3); Carbon Dioxide 26 mEq/L (23-29); Chloride 104 mEq/L (98-107); Glucose 104 mg/dL (70-105); Osmolality,Calculated 282 (280-300); Potassium 3.6 mEq/L (3.5-5.1); Sodium 135 mEq/L (136-145); eGFR For Non-African Americans > 60 (> 60)
[2019-03-26] MEDS: Aspirin Enteric Coated 81 MG Tablet PO SCH (08:15)
[2019-03-26] MEDS: Methyl Salicylate/Menthol 28 GM TUBE TP PRN ×2 (08:19→20:22)
--- NOTE | 2019-03-26 13:20 | Internal Med Progress Note ---
Hospitalist Progress Note - Encounter Date of Encounter: 03/26/19 Time of Encounter: 11:00 - Subjective Interval History: No acute issues. Back pain is stable with positioning. No abdominal pain or diarrhea, no hematemesis. - Exam Vitals: Temp Pulse Resp BP Pulse Ox 98.0 F 74 15 114/66 96 03/26/19 10:07 03/26/19 10:07 03/26/19 10:07 03/26/19 10:07 03/26/19 10:07 Exam: General: A&O X3, conversant, no acute distress Head: atraumatic, normocephalic Eye: PERRL, EOMI, conjuntiva pink, sclera anicteric Neck: Supple, trachea midline; No lymphadenopathy Respiratory: CTAB. No accessory muscle use, wheezes, rales, or rhonchi Cardiovascular: RRR, +S1, +S2; no murmurs, rubs, gallops Abdomen: Soft, nontender Extremities: warm, radial pulses palpable and symmetrical Psychiatric: Normal affect, normal mood Skin: Dry, intact - Assessment and Plan (1) Coffee ground emesis Current Visit: Yes Status: Acute Assessment and Plan: Taken after patient had 2 tablets of Excedrin and daily aspirin, likely gastritis or PUD. Resolved. Continue oral PPI, plan for outpatient EGD on discharge per GI recs (2) Compression fx, thoracic spine Current Visit: Yes Status: Acute Assessment and Plan: - X-ray of thoracic spine on 03/24/19 demonstrated the following: Approximately 60% anterior wedging of T12 progressed comparing with recent comparison studies - Orthopedics consulted for brace placement (3) Hepatitis A Current Visit: Yes Status: Acute Assessment and Plan: No acute issues, continue supportive care with IV fluids. (4) Hypertension Current Visit: No Status: Chronic Assessment and Plan: on home anti-hypertensive. (5) CONNIE (acute kidney injury) Current Visit: Yes Status: Acute Assessment and Plan: Admission creatinine 2.02, previous creatinine 1.13 - likely pre-renal in the setting of dehydration and PO intake and BUN/Apprentice Photographer ratio>20:1 Plan: resolved (6) Hyperlipidemia Current Visit: No Status: Chronic Assessment and Plan: on home lipitor. (7) Stroke Current Visit: No Status: Chronic Assessment and Plan: Had past hx of stroke with left sided residual weakness. (8) Thrombocytopenia Current Visit: Yes Status: Acute Assessment and Plan: stable (9) Renal cyst Current Visit: Yes Status: Acute Assessment and Plan: noted on CT scan, 10mm left renal cyst (10) Elevated LFTs Current Visit: Yes Status: Acute Assessment and Plan: Likely from acute hep A. Continue supportive care. (11) DVT prophylaxis Current Visit: Yes Status: Acute Assessment and Plan: scd - Time Spent with Patient Total time spent is greater than 50% in coordination of care (as documented) at patient's floor/unit and/or counseling patient: Internal Medicine: Result - Labs CBC & Chem 7: 03/26/19 07:06 03/26/19 07:06 Labs: Short CBC 03/26/19 Range/Units 07:06 WBC 5.3 (4.3-11.1) K/mcL Hgb 11.0 L (12.9-16.9) g/dL Hct 31.9 L (37.5-50.1) % Plt Count 105 L (140-400) K/mcL Neutrophils # 3.7 (1.6-8.9) K/mcL BMP 03/26/19 07:06 Sodium 135 L Potassium 3.6 Chloride 104 Carbon Dioxide 26 BUN 18 Creatinine 0.81 Glucose 104 Calcium 7.8 L - ABG Interpretation ABG results: PT/INR, D-dimer PT 13.5 Seconds (9.4-12.1) H 03/23/19 04:19 Consult Discharge Plan - Plan Referrals: Castro Souza DO [Primary Care Provider] - (3) Hepatitis A Qualifiers: Hepatic coma status: without hepatic coma Qualified Code(s): B15.9 - Hepatitis A without hepatic coma (4) Hypertension Qualifiers: Hypertension type: essential hypertension Qualified Code(s): I10 - Essential (primary) hypertension (6) Hyperlipidemia Qualifiers: Hyperlipidemia type: unspecified Qualified Code(s): E78.5 - Hyperlipidemia, unspecified (7) Stroke Qualifiers: CVA mechanism: unspecified Qualified Code(s): I63.9 - Cerebral infarction, unspecified
[2019-03-27] MEDS: *HR* Enoxaparin 40 MG/0.4 ML SYRINGE SQ SCH (05:27)
[2019-03-27 06:01] LABS: Basophils # 0.1 K/mcL (0.0-0.2); Eosinophils # 0.2 K/mcL (0.0-0.6); Eosinophils % 3.5 %; Hematocrit 33.7 % (37.5-50.1); Hemoglobin 11.4 g/dL (12.9-16.9); Immature Granulocytes % 1.2 % (0-4); Lymphocytes # 0.6 K/mcL (0.6-4.6); Lymphocytes % 11.8 %; Mean Corpuscular HGB Conc 33.8 g/dL (31.6-35.5); Mean Corpuscular Hemoglobin 30.4 pg (28.0-33.3); Mean Corpuscular Volume 89.9 fL (83.0-100.0); Monocytes # 0.8 K/mcL (0.0-1.3); Monocytes % 14.7 %; Neutrophils # 3.5 K/mcL (1.6-8.9); Platelet Count 116 K/mcL (140-400); Red Blood Count 3.75 M/mcL (4.19-5.50); Segmented Neutrophils % 67.8 %
[2019-03-27 06:20] LABS: BUN/Creatinine Ratio 21 (6-26); Blood Urea Nitrogen 17 mg/dL (8-23); Calcium 7.9 mg/dL (8.6-10.3); Carbon Dioxide 24 mEq/L (23-29); Chloride 106 mEq/L (98-107); Glucose 113 mg/dL (70-105); Osmolality,Calculated 282 (280-300); Potassium 3.6 mEq/L (3.5-5.1); Sodium 135 mEq/L (136-145); eGFR For Non-African Americans > 60 (> 60)
[2019-03-27] MEDS: Aspirin Enteric Coated 81 MG Tablet PO SCH (08:18)
--- NOTE | 2019-03-27 15:23 | Internal Med Progress Note ---
Hospitalist Progress Note - Encounter Date of Encounter: 03/27/19 Time of Encounter: 15:21 - Subjective Interval History: No acute events. Patient sitting up in chair. - Exam Vitals: Temp Pulse Resp BP Pulse Ox 98.5 F 62 20 154/77 97 03/27/19 07:37 03/27/19 07:37 03/27/19 07:37 03/27/19 07:37 03/27/19 07:37 Exam: General: A&O X3, conversant, no acute distress Head: atraumatic, normocephalic Eye: PERRL, EOMI, conjuntiva pink, sclera anicteric Neck: Supple, trachea midline; No lymphadenopathy Respiratory: CTAB. No accessory muscle use, wheezes, rales, or rhonchi Cardiovascular: RRR, +S1, +S2; no murmurs, rubs, gallops Abdomen: Soft, nontender Extremities: warm, radial pulses palpable and symmetrical Psychiatric: Normal affect, normal mood Skin: Dry, intact - Assessment and Plan (1) Coffee ground emesis Current Visit: Yes Status: Acute Assessment and Plan: Taken after patient had 2 tablets of Excedrin and daily aspirin, likely gastritis or PUD. Resolved. Continue oral PPI, plan for outpatient EGD on discharge per GI recs Dispo: Awaiting placement to SNF. (2) Compression fx, thoracic spine Current Visit: Yes Status: Acute Assessment and Plan: - X-ray of thoracic spine on 03/24/19 demonstrated the following: Approximately 60% anterior wedging of T12 progressed comparing with recent comparison studies - Orthopedics consulted for brace placement (3) Hepatitis A Current Visit: Yes Status: Acute Assessment and Plan: No acute issues, continue supportive care with IV fluids. (4) Hypertension Current Visit: No Status: Chronic Assessment and Plan: on home anti-hypertensive. (5) CONNIE (acute kidney injury) Current Visit: Yes Status: Acute Assessment and Plan: Admission creatinine 2.02, previous creatinine 1.13 - likely pre-renal in the setting of dehydration and PO intake and BUN/[employer]en[employer] Admin ratio>20:1 Plan: resolved (6) Hyperlipidemia Current Visit: No Status: Chronic Assessment and Plan: on home lipitor. (7) Stroke Current Visit: No Status: Chronic Assessment and Plan: Had past hx of stroke with left sided residual weakness. (8) Thrombocytopenia Current Visit: Yes Status: Acute Assessment and Plan: stable (9) Renal cyst Current Visit: Yes Status: Acute Assessment and Plan: noted on CT scan, 10mm left renal cyst (10) Elevated LFTs Current Visit: Yes Status: Acute Assessment and Plan: Likely from acute hep A. Continue supportive care. (11) DVT prophylaxis Current Visit: Yes Status: Acute Assessment and Plan: scd - Time Spent with Patient Total time spent is greater than 50% in coordination of care (as documented) at patient's floor/unit and/or counseling patient: Internal Medicine: Result - Labs CBC & Chem 7: 03/27/19 05:48 03/27/19 05:48 Labs: Short CBC 03/27/19 Range/Units 05:48 WBC 5.2 (4.3-11.1) K/mcL Hgb 11.4 L (12.9-16.9) g/dL Hct 33.7 L (37.5-50.1) % Plt Count 116 L (140-400) K/mcL Neutrophils # 3.5 (1.6-8.9) K/mcL BMP 03/27/19 05:48 Sodium 135 L Potassium 3.6 Chloride 106 Carbon Dioxide 24 BUN 17 Creatinine 0.81 Glucose 113 H Calcium 7.9 L - ABG Interpretation ABG results: PT/INR, D-dimer PT 13.5 Seconds (9.4-12.1) H 03/23/19 04:19 Consult Discharge Plan - Plan Referrals: Castro Souza DO [Primary Care Provider] - (3) Hepatitis A Qualifiers: Hepatic coma status: without hepatic coma Qualified Code(s): B15.9 - H epatitis A without hepatic coma (4) Hypertension Qualifiers: Hypertension type: essential hypertension Qualified Code(s): I10 - Essential (primary) hypertension (6) Hyperlipidemia Qualifiers: Hyperlipidemia type: unspecified Qualified Code(s): E78.5 - Hyperlipidemia, unspecified (7) Stroke Qualifiers: CVA mechanism: unspecified Qualified Code(s): I63.9 - Cerebral infarction, unspecified
[2019-03-28] MEDS: *HR* Enoxaparin 40 MG/0.4 ML SYRINGE SQ SCH (05:32)
[2019-03-28 05:55] LABS: Basophils % 0.6 %; Eosinophils # 0.2 K/mcL (0.0-0.6); Eosinophils % 4.9 %; Hematocrit 33.3 % (37.5-50.1); Hemoglobin 11.2 g/dL (12.9-16.9); Immature Granulocytes % 1.5 % (0-4); Lymphocytes # 0.7 K/mcL (0.6-4.6); Lymphocytes % 14.6 %; Mean Corpuscular HGB Conc 33.6 g/dL (31.6-35.5); Mean Corpuscular Hemoglobin 30.5 pg (28.0-33.3); Mean Corpuscular Volume 90.7 fL (83.0-100.0); Monocytes # 0.6 K/mcL (0.0-1.3); Monocytes % 11.8 %; Neutrophils # 3.2 K/mcL (1.6-8.9); Platelet Count 123 K/mcL (140-400); Red Blood Count 3.67 M/mcL (4.19-5.50); Red Cell Distribution Width 13.3 % (11.5-14.5); Segmented Neutrophils % 66.6 %
[2019-03-28 06:02] LABS: BUN/Creatinine Ratio 19 (6-26); Blood Urea Nitrogen 18 mg/dL (8-23); Carbon Dioxide 24 mEq/L (23-29); Chloride 106 mEq/L (98-107); Glucose 112 mg/dL (70-105); Osmolality,Calculated 289 (280-300); Potassium 3.6 mEq/L (3.5-5.1); Sodium 138 mEq/L (136-145); eGFR For Non-African Americans > 60 (> 60)
[2019-03-28 06:40] LABS: Calcium 7.8 mg/dL (8.6-10.3)
[2019-03-28] MEDS: Aspirin Enteric Coated 81 MG Tablet PO SCH (08:47)
--- NOTE | 2019-03-28 11:44 | Internal Med Progress Note ---
<Taina Paz - Last Filed: 03/28/19 15:01> Hospitalist Progress Note - Encounter Date of Encounter: 03/28/19 - Exam Vitals: Temp Pulse Resp BP Pulse Ox 98.1 F 88 15 168/95 97 03/28/19 14:20 03/28/19 14:20 03/28/19 14:20 03/28/19 14:20 03/28/19 14:20 - Assessment and Plan (1) Hypertension Current Visit: No Status: Chronic (2) CONNIE (acute kidney injury) Current Visit: Yes Status: Acute (3) Hyperlipidemia Current Visit: No Status: Chronic (4) DVT prophylaxis Current Visit: Yes Status: Acute (5) Stroke Current Visit: No Status: Chronic (6) Thrombocytopenia Current Visit: Yes Status: Acute (7) Renal cyst Current Visit: Yes Status: Acute (8) Elevated LFTs Current Visit: Yes Status: Acute (9) Coffee ground emesis Current Visit: Yes Status: Acute (10) Hepatitis A Current Visit: Yes Status: Acute (11) Compression fx, thoracic spine Current Visit: Yes Status: Acute - Time Spent with Patient Total time spent is greater than 50% in coordination of care (as documented) at patient's floor/unit and/or counseling patient: Internal Medicine: Result - Labs CBC & Chem 7: 03/28/19 04:52 03/28/19 04:52 Labs: Short CBC 03/28/19 Range/Units 04:52 WBC 4.7 (4.3-11.1) K/mcL Hgb 11.2 L (12.9-16.9) g/dL Hct 33.3 L (37.5-50.1) % Plt Count 123 L (140-400) K/mcL Neutrophils # 3.2 (1.6-8.9) K/mcL BMP 03/28/19 04:52 Sodium 138 Potassium 3.6 Chloride 106 Carbon Dioxide 24 BUN 18 Creatinine 0.97 Glucose 112 H Calcium 7.8 L - ABG Interpretation ABG results: PT/INR, D-dimer PT 13.5 Seconds (9.4-12.1) H 03/23/19 04:19 Consult Discharge Plan - Plan Referrals: Castro Souza DO [Primary Care Provider] - - Attending Attestation I examined this patient and my medical decision-making was reviewed with the Resident Physician Dr Mg. I agree with the documented findings, disposition and treatment plan as described except to the extent set forth below. Mr Miranda is being observed for fall and hemetemesis awake, no family present, mid back pain unchanged, no lower back pain or radiation to legs, no numbness/tingling lower extremities. deneis any abd pain, ruq pain, n/v. eating and drinking ithout any pain, n/v. awaiting placement and eager to go. gen- alert, awake,appears stated age cv- reg rate and rhythm, normal s1,s2, no murmurs appreciated lungs- ctabl, no wheezing, rhonchi or crackles, normal resp effort abd- soft, non tender, non distended, + bs, negative huertas sign neuro- AAOxperson, place, situation, moves all ext , has baseline left residual weakness (prior cva) T12 compression fracture - brace ordered by ortho, SW following to ensure fitted prior to dc, prn pain control Falls, generalized weakness- awaiting snf placement for rehab Hematemesis-no further episodes, hgb stable, - PPI, seen by GI, outpt EGD Hepatitis A- supportive care, GI evaluated, repeat cmp in am Acute GIB anemia,s table, did not require prbcs- PPI, egd as above Incidental possible cholecystitis on prior imaging this admission- pt has no symptoms, will defer to outpt provider for further monitoring/work up Incidental right renal cyst- fu outpt further diagnoses and plan as noted by resident <Fabrice Mg - Last Filed: 03/28/19 18:35> Hospitalist Progress Note - Encounter Date of Encounter: 03/28/19 Time of Encounter: 08:46 - Subjective Interval History: Patient was seen and examined at bedside this morning. He states that he is feeling well. His back pain is slightly better today. He denies nausea or vo miting. No acute events overnight. We are waiting for SNF placement for rehabilitation. - Exam Vitals: Temp Pulse Resp BP Pulse Ox 98.5 F 72 20 119/63 97 03/28/19 10:37 03/28/19 10:37 03/28/19 10:37 03/28/19 10:37 03/28/19 10:37 Exam: General: A&O X3, conversant, no acute distress Head: atraumatic, normocephalic Eye: PERRL, EOMI, conjuntiva pink, sclera anicteric Neck: Supple, trachea midline; No lymphadenopathy Respiratory: CTAB. No accessory muscle use, wheezes, rales, or rhonchi Cardiovascular: RRR, +S1, +S2; no murmurs, rubs, gallops Abdomen: Soft, nontender Extremities: warm, radial pulses palpable and symmetrical Psychiatric: Normal affect, normal mood Skin: Dry, intact - Assessment and Plan (1) Coffee ground emesis Current Visit: Yes Status: Acute Assessment and Plan: - Initially presented with a complaint of coffee-ground emesis - Initially presented to the [facility]; gastric occult blood test was positive - Patient denies having any episodes of vomiting or other signs of bleeding - Hemoglobin appears stable at this time Plan: - GI recommend EGD as an outpatient - Diet will be advanced to full liquid diet today - Oral omeprazole - Zofran PRN (2) Compression fx, thoracic spine Current Visit: Yes Status: Acute Assessment and Plan: - X-ray of thoracic spine on 03/24/19 demonstrated the following: Approximately 60% anterior wedging of T12 progressed comparing with recent comparison studies - Brace has been ordered by orthopedics - Social workers following to ensure that he is fitted prior to discharge - Pain control as needed (3) CONNIE (acute kidney injury) Current Visit: Yes Status: Acute Assessment and Plan: - Etiology unknown; possibly prerenal due to volume loss from vomiting - Continue IV fluid hydration (4) Hepatitis A Current Visit: Yes Status: Acute Assessment and Plan: - Hepatitis screen positive for hepatitis A - Supportive care - Repeat a.m. labs - Time Spent with Patient Total time spent is greater than 50% in coordination of care (as documented) at patient's floor/unit and/or counseling patient: Internal Medicine: Result - Labs CBC & Chem 7: 03/28/19 04:52 03/28/19 04:52 Labs: Short CBC 03/28/19 Range/Units 04:52 WBC 4.7 (4.3-11.1) K/mcL Hgb 11.2 L (12.9-16.9) g/dL Hct 33.3 L (37.5-50.1) % Plt Count 123 L (140-400) K/mcL Neutrophils # 3.2 (1.6-8.9) K/mcL BMP 03/28/19 04:52 Sodium 138 Potassium 3.6 Chloride 106 Carbon Dioxide 24 BUN 18 Creatinine 0.97 Glucose 112 H Calcium 7.8 L - ABG Interpretation ABG results: PT/INR, D-dimer PT 13.5 Seconds (9.4-12.1) H 03/23/19 04:19 <Taina Paz - Last Filed: 03/28/19 15:01> (1) Hypertension Qualifiers: Hypertension type: essential hypertension Qualified Code(s): I10 - Essential (primary) hypertension (3) Hyperlipidemia Qualifiers: Hyperlipidemia type: unspecified Qualified Code(s): E78.5 - Hyperlipidemia, unspecified (5) Stroke Qualifiers: CVA mechanism: unspecified Qualified Code(s): I63.9 - Cerebral infarction, unspecified (10) Hepatitis A Qualifiers: Hepatic coma status: without hepatic coma Qualified Code(s): B15.9 - Hepatitis A without hepatic coma <Fabrice Mg - Last Filed: 03/28/19 18:35> (4) Hepatitis A Qualifiers: Hepatic coma status: without hepatic coma Qualified Code(s): B15.9 - Hepatitis A without hepatic coma
[2019-03-29] MEDS: *HR* Enoxaparin 40 MG/0.4 ML SYRINGE SQ SCH (05:52)
[2019-03-29 06:49] LABS: Basophils # 0.1 K/mcL (0.0-0.2); Basophils % 1.2 %; Eosinophils # 0.2 K/mcL (0.0-0.6); Eosinophils % 4.1 %; Hematocrit 34.3 % (37.5-50.1); Hemoglobin 11.5 g/dL (12.9-16.9); Immature Granulocytes % 1.4 % (0-4); Lymphocytes # 0.6 K/mcL (0.6-4.6); Lymphocytes % 11.8 %; Mean Corpuscular HGB Conc 33.5 g/dL (31.6-35.5); Mean Corpuscular Hemoglobin 30.5 pg (28.0-33.3); Mean Platelet Volume 9.9 fL (9.4-12.4); Monocytes # 0.5 K/mcL (0.0-1.3); Monocytes % 9.9 %; Neutrophils # 3.5 K/mcL (1.6-8.9); Platelet Count 141 K/mcL (140-400); Red Blood Count 3.77 M/mcL (4.19-5.50); Red Cell Distribution Width 13.2 % (11.5-14.5); Segmented Neutrophils % 71.6 %
[2019-03-29 07:07] LABS: Alanine Aminotransferase 76 Units/L (7-52); Albumin 2.6 g/dL (3.5-5.7); Albumin/Globulin Ratio 0.7 (1.1-2.2); Alkaline Phosphatase 61 Units/L (34-104); Aspartate Amino Transferase 79 Units/L (13-39); BUN/Creatinine Ratio 18 (6-26); Bilirubin,Total 0.9 mg/dL (0.3-1.0); Blood Urea Nitrogen 14 mg/dL (8-23); Carbon Dioxide 26 mEq/L (23-29); Chloride 103 mEq/L (98-107); Globulin 3.5 g/dL (2.4-3.5); Glucose 113 mg/dL (70-105); Magnesium 1.7 mg/dL (1.6-2.6); Osmolality,Calculated 281 (280-300); Potassium 3.5 mEq/L (3.5-5.1); Sodium 135 mEq/L (136-145); Total Protein 6.1 g/dL (6.4-8.9); eGFR For Non-African Americans > 60 (> 60)
[2019-03-29] MEDS: Aspirin Enteric Coated 81 MG Tablet PO SCH (08:19)
--- NOTE | 2019-03-29 14:09 | Discharge Summary ---
<Taina Paz - Last Filed: 03/29/19 16:29> - NOTES TO OUTPATIENT PROVIDER Notes to Outpatient Provider: t12 compression fx, dispo to rehab, fu with ortho outpt; had hematemasis and seen by GI, will do outpt EGD; incidental right renal cyst on CT imaging and possible cholecystitis but no clinical correlation- should he develop symptoms outpt wanted you to be aware Date of Encounter: 03/29/19 - Discharge Diagnosis (1) Hypertension Status: Chronic Qualifiers: Hypertension type: essential hypertension Qualified Code(s): I10 - Essential (primary) hypertension (2) CONNIE (acute kidney injury) Status: Acute (3) Hyperlipidemia Status: Chronic Qualifiers: Hyperlipidemia type: unspecified Qualified Code(s): E78.5 - Hyperlipidemia, unspecified (4) DVT prophylaxis Status: Acute (5) Stroke Status: Chronic Qualifiers: CVA mechanism: unspecified Qualified Code(s): I63.9 - Cerebral infarction, unspecified (6) Thrombocytopenia Status: Acute (7) Renal cyst Status: Acute (8) Elevated LFTs Status: Acute (9) Coffee ground emesis Status: Acute (10) Hepatitis A Status: Acute Qualifiers: Hepatic coma status: without hepatic coma Qualified Code(s): B15.9 - Hepatitis A without hepatic coma (11) Compression fx, thoracic spine Status: Acute Hospital course: Mr. Miranda is a 88 year old male - Time Spent with Patient Total time spent providing and/or coordinating discharge services: Time spent: Greater than 30 minutes (40 min) - Discharge Medications Prescriptions: Continued Tamsulosin HCl [Flomax] 0.4 mg PO DAILY Hydrochlorothiazide [Microzide] 12.5 mg PO DAILY Atorvastatin [Lipitor] 40 mg PO DAILY Aspirin Enteric Coated [Aspirin EC] 81 mg PO DAILY Home Medications: Aspirin Enteric Coated [Aspirin EC] 81 mg PO DAILY 03/23/19 [History] Atorvastatin [Lipitor] 40 mg PO DAILY 03/23/19 [History] Hydrochlorothiazide [Microzide] 12.5 mg PO DAILY 03/23/19 [History] Tamsulosin HCl [Flomax] 0.4 mg PO DAILY 03/23/19 [History] Allergies/Adverse Reactions: Allergy/AdvReac Type Severity Reaction Status Date / Time No Known Allergies Allergy Verified 03/23/19 04:30 Date of admission: 03/23/19 03:24 Primary care physician: Castro Souza DO Consults: 03/23/19 04:11 Consult to Gastroenterology [CONS] Routine Consulting Provider: Gastroenterology Breanne Reason for Consult: hemetesemsis Call Completed: No 03/23/19 04:12 Consult to Occupational Therapy [CONS] Routine Comment: Evaluate, develop and implement POC Reason for Consult: weakess, lives alone Does patient have active BEDREST order?: No Is patient medically & hemodynamically stable?: Yes Patient assessed for mobility or mobilized this visit?: No Consult to Physical Therapy [CONS] Routine Comment: Evaluate, develop and implement POC Reason for Consult: weakess, lives alone Does patient have active BEDREST order?: No Is patient medically & hemodynamically stable?: Yes Patient assessed for mobility or mobilized this visit?: No 03/25/19 11:45 Consult to Orthopedic Surgery [CONS] Routine Consulting Provider: Orthopedic and Sports Medicine Reason for Consult: Patient has evidence of progressive compression fracture at T12; assess for brace Call Completed: No 03/26/19 07:43 Consult to [facility] C[facility] [CONS] Routine Reason for SW Consult: dispo snf or swing - Constitutional Vitals: Temp Pulse Resp BP Pulse Ox 97.8 F 86 16 141/61 95 03/29/19 15:23 03/29/19 15:23 03/29/19 15:23 03/29/19 15:23 03/29/19 15:23 - Patient Status Disposition: Transfer Other Condition: Good - Discharge Instructions Follow Up With: Castro Souza DO [Primary Care Provider] - Arleth Pacheco MD [Partnered Physician] - (outpt EGD) Anshu Hassan DO [Partnered Physician] - (follow up of t12 compression fracture) - Attending Attestation I examined this patient and my medical decision-making was reviewed with the Resident Physician Dr Mg. I agree with the documented findings, disposition and treatment plan as described except to the extent set forth below. Mr Miranda is being observed for fall and hemetemesis. He is medically stable for dc to snf awake, no family present, back pain stable, ambulated with PT and did well. eager for rehab. no n/v/abd pain. gen- alert, awake,appears stated age cv- reg rate and rhythm, normal s1,s2, no le edema lungs- ctabl, no wheezing, rhonchi or crackles, normal resp effort on room air abd- soft, non tender, non distended, + bs neuro- AAOxperson, place, situation, moves all ext T12 compression fracture - brace ordered by ortho, SW following to ensure fitted prior to dc, prn pain control, fu with pain management outpt Falls, generalized weakness- awaiting snf placement for rehab Hematemesis-no further episodes, hgb stable, - PPI, seen by GI, outpt EGD Hepatitis A- supportive care, GI evaluated, repeat cmp improved Acute GIB anemia,stable, did not require prbcs- PPI, egd as above Incidental possible cholecystitis on prior imaging this admission- pt has no symptoms, will defer to outpt provider for further monitoring/work up Incidental right renal cyst- fu outpt further diagnoses and plan as noted by resident time spent on dc 40 min <Fabrice Mg - Last Filed: 03/29/19 18:39> Date of Encounter: 03/29/19 Time of Encounter: 08:15 - Discharge Diagnosis (1) Coffee ground emesis Priority: Primary Status: Acute (2) Compression fx, thoracic spine Priority: Secondary Status: Acute (3) CONNIE (acute kidney injury) Priority: Secondary Status: Acute (4) Hepatitis A Priority: Secondary Status: Acute Qualifiers: Hepatic coma status: without hepatic coma Qualified Code(s): B15.9 - Hepatitis A without hepatic coma Hospital course: Mr. Miranda is a 88 year old male with a PMH of CVA, HLD, and HTN who presented to [facility] as a transfer from [facility] with a chief complaint of hematemesis. He noted that he had an abrupt onset of coughing and that blood started to come up. He described as coffee ground in color. He denied having any prior episodes. He denied excessive NSAID use or prior history of peptic ulcer disease. Also reported that he had fallen out of bed and has had severe back pain since his fall. He was found to have a positive occult blood test at [facility] from gastric contents. His hemoglobin and hematocrit were stable. A CT scan demonstrated possible small bowel ileus, constipation, and bibasilar pneumonia. He was transferred to [facility] for further management. Upon arrival to the emergency room, patients vital signs were as follows: Temperature 97.6, pulse 71, respiratory rate 16, blood pressure 105/63, and O2 saturation 96%. Laboratory analysis demonstrated an elevated white count at 13.9, elevated creatinine at 1.69, AST 334, ALT 86. Due to elevated liver enzymes, a hepatitis panel was obtained, which was positive for hepatitis A. GI was consulted. Patient had no episodes of hematemesis on the hospital. He was started on an IV proton pump inhibitor. GI recommended an outpatient EGD. A right upper quadrant ultrasound was obtained on 03/23/19, which was unremarkable. Liver ultrasound was performed on 03/24/19. It demonstrated cholelithiasis, mild gallbladder wall thickening, minimal extrahepatic biliary dilation, appearing unchanged from previous. He was treated with IV fluids for his acute kidney injury, which resolved during his hospitalization. Due to continued back pain, an x-ray of the thoracic spine was ordered. It demonstrated approximately 60% anterior wedging of T12. Orthopedics was consulted, who recommended a brace placement. A brace was ordered, and social work was consulted to ensure fitting prior to discharge. He was given as needed pain control. He was seen and examined up bedside; reports feeling well today. Notes that his back pain has improved, and states that he has not had any nausea or vomiting since his initial admission. He denies fever, chills, abdominal pain, or shortness of breath. Referral has been made to [facility]. Awaiting placement. - Time Spent with Patient Total time spent providing and/or coordinating discharge services: Date of admission: 03/23/19 03:24 Primary care physician: Castro Souza DO Consults: 03/23/19 04:11 Consult to Gastroenterology [CONS] Routine Consulting Provider: Gastroenterology Breanne Reason for Consult: [email or web address] Call Completed: No 03/23/19 04:12 Consult to Occupational Therapy [CONS] Routine Comment: Evaluate, develop and implement POC Reason for Consult: weakess, lives alone Does patient have active BEDREST order?: No Is patient medically & hemodynamically stable?: Yes Patient assessed for mobility or mobilized this visit?: No Consult to Physical Therapy [CONS] Routine Comment: Evaluate, develop and implement POC Reason for Consult: weakess, lives alone Does patient have active BEDREST order?: No Is patient medically & hemodynamically stable?: Yes Patient assessed for mobility or mobilized this visit?: No 03/25/19 11:45 Consult to Orthopedic Surgery [CONS] Routine Consulting Provider: Orthopedic and Sports Medicine Reason for Consult: Patient has evidence of progressive compression fracture at T12; assess for brace Call Completed: No 03/26/19 07:43 Consult to Bog Cutter [CONS] Routine Reason for SW Consult: dispo snf or swing Discharging clinician: Fabrice Mg Anticipated date of discharge: 03/29/19 - Constitutional Vitals: Temp Pulse Resp BP Pulse Ox 98 F 69 16 99/42 97 03/29/19 10:54 03/29/19 10:54 03/29/19 10:54 03/29/19 10:54 03/29/19 10:54 General appearance: Present: mild distress, A&O X 3, pleasant, answers questions appropriately Exam: General: A&O X3, conversant, no acute distress Head: atraumatic, normocephalic Eye: PERRL, EOMI, conjuntiva pink, sclera anicteric Neck: Supple, trachea midline; No lymphadenopathy Respiratory: CTAB. No accessory muscle use, wheezes, rales, or rhonchi Cardiovascular: RRR, +S1, +S2; no murmurs, rubs, gallops Abdomen: Soft, nontender Extremities: warm, radial pulses palpable and symmetrical Psychiatric: Normal affect, normal mood Skin: Dry, intact - Patient Status Overall status at discharge: patient is progressing back to baseline - Diet and Activity Activity: increase activity as tolerated Diet: advance to your usual diet
[2019-03-30] MEDS: *HR* Enoxaparin 40 MG/0.4 ML SYRINGE SQ SCH (05:46)
[2019-03-30 07:21] LABS: BUN/Creatinine Ratio 17 (6-26); Blood Urea Nitrogen 16 mg/dL (8-23); Carbon Dioxide 26 mEq/L (23-29); Chloride 104 mEq/L (98-107); Glucose 101 mg/dL (70-105); Osmolality,Calculated 283 (280-300); Potassium 3.4 mEq/L (3.5-5.1); Sodium 136 mEq/L (136-145); eGFR For Non-African Americans > 60 (> 60)
[2019-03-30 07:24] LABS: Basophils % 0.9 %; Eosinophils # 0.2 K/mcL (0.0-0.6); Hematocrit 34.4 % (37.5-50.1); Hemoglobin 11.3 g/dL (12.9-16.9); Immature Granulocytes % 0.7 % (0-4); Lymphocytes # 0.7 K/mcL (0.6-4.6); Mean Corpuscular HGB Conc 32.8 g/dL (31.6-35.5); Mean Corpuscular Hemoglobin 30.5 pg (28.0-33.3); Mean Platelet Volume 10.1 fL (9.4-12.4); Monocytes # 0.5 K/mcL (0.0-1.3); Monocytes % 10.6 %; Neutrophils # 3.1 K/mcL (1.6-8.9); Platelet Count 160 K/mcL (140-400); Red Cell Distribution Width 13.2 % (11.5-14.5); Segmented Neutrophils % 68.8 %
[2019-03-30] MEDS: Aspirin Enteric Coated 81 MG Tablet PO SCH (08:02)
[2019-03-30 11:47] VITALS: BP 127/53
--- NOTE | 2019-03-30 12:55 | Physician Discharge Referral ---
<Fabrice Mg - Last Filed: 03/30/19 12:54> [facility] Referral Info Provider in Charge after Transfer: PCP - Diagnosis (1) Coffee ground emesis Priority: Primary Status: Acute (2) Compression fx, thoracic spine Priority: Secondary Status: Acute (3) CONNIE (acute kidney injury) Priority: Secondary Status: Acute (4) Hepatitis A Priority: Secondary Status: Acute - Transfer Medications Home Medications: Aspirin Enteric Coated [Aspirin EC] 81 mg PO DAILY 03/23/19 [History] Atorvastatin [Lipitor] 40 mg PO DAILY 03/23/19 [History] Hydrochlorothiazide [Microzide] 12.5 mg PO DAILY 03/23/19 [History] Tamsulosin HCl [Flomax] 0.4 mg PO DAILY 03/23/19 [History] Allergies/Adverse Reactions: Allergy/AdvReac Type Severity Reaction Status Date / Time No Known Allergies Allergy Verified 03/23/19 04:30 - Respiratory Orders Smoking Cessation: Smoking cessation has been advised. For more information, call the [facility] at 2-738-OFDQ-NOW. - Diet Orders Regular CERTIFICATION: I certify that the transfer of the above named patient to an Extended Care Facility is necessary for the continuing treatment of the diagnosis listed. The above information is true and accurate reflection of patient's current condition. Confidential - Redisclosure prohibited without a patient's written consent. <Taina Paz - Last Filed: 03/30/19 13:31> - Diagnosis (1) Hypertension Priority: Secondary Status: Chronic (2) CONNIE (acute kidney injury) Priority: Secondary Status: Acute (3) Hyperlipidemia Priority: Secondary Status: Chronic (4) DVT prophylaxis Priority: Secondary Status: Acute (5) Stroke Priority: Secondary Status: Chronic (6) Thrombocytopenia Priority: Secondary Status: Acute (7) Renal cyst Priority: Secondary Status: Acute (8) Elevated LFTs Priority: Secondary Status: Acute (9) Coffee ground emesis Priority: Primary Status: Acute (10) Hepatitis A Priority: Secondary Status: Acute (11) Compression fx, thoracic spine Priority: Secondary Status: Acute - Respiratory Orders None Smoking Cessation: Smoking cessation has been advised. For more information, call the [facility] at 5-083-FQYY-NOW. - Ancillary Orders May use pressure relief devices daily prn - Advance Directives Code Status: Full Code - Mobility Orders Ambulate - Rehabiliation Orders Rehab Potential: Good Rehab Orders: ROM Exercises, Evaluation for Physical Therapy, Evaluation for Occupational Therapy - Treatments Skin tear care topically daily PRN per policy - Diet Orders Mechanical Soft (chopped meat) CERTIFICATION: I certify that the transfer of the above named patient to an Extended Care Facility is necessary for the continuing treatment of the diagnosis listed. The above information is true and accurate reflection of patient's current condit ion. Confidential - Redisclosure prohibited without a patient's written consent.
[2019-03-30] MEDS ORDERED: Potassium Chloride Elixir 20 MEQ/15 ML UDC PO ONE (13:26)
--- NOTE | 2019-03-30 15:09 | Internal Med Progress Note ---
<Taina Paz - Last Filed: 03/30/19 15:39> Hospitalist Progress Note - Encounter Date of Encounter: 03/30/19 - Exam Vitals: Temp Pulse Resp BP Pulse Ox 98.2 F 51 19 127/53 96 03/30/19 11:46 03/30/19 11:46 03/30/19 11:46 03/30/19 11:46 03/30/19 11:46 - Assessment and Plan (1) Hypertension Current Visit: No Status: Chronic (2) CONNIE (acute kidney injury) Current Visit: Yes Status: Acute (3) Hyperlipidemia Current Visit: No Status: Chronic (4) DVT prophylaxis Current Visit: Yes Status: Acute (5) Stroke Current Visit: No Status: Chronic (6) Thrombocytopenia Current Visit: Yes Status: Acute (7) Renal cyst Current Visit: Yes Status: Acute (8) Elevated LFTs Current Visit: Yes Status: Acute (9) Coffee ground emesis Current Visit: Yes Status: Acute (10) Hepatitis A Current Visit: Yes Status: Acute (11) Compression fx, thoracic spine Current Visit: Yes Status: Acute - Time Spent with Patient Total time spent is greater than 50% in coordination of care (as documented) at patient's floor/unit and/or counseling patient: Internal Medicine: Result - Labs CBC & Chem 7: 03/30/19 05:32 03/30/19 05:32 Labs: Short CBC 03/30/19 Range/Units 05:32 WBC 4.5 (4.3-11.1) K/mcL Hgb 11.3 L (12.9-16.9) g/dL Hct 34.4 L (37.5-50.1) % Plt Count 160 (140-400) K/mcL Neutrophils # 3.1 (1.6-8.9) K/mcL BMP 03/30/19 05:32 Sodium 136 Potassium 3.4 L Chloride 104 Carbon Dioxide 26 BUN 16 Creatinine 0.96 Glucose 101 Calcium 8.0 L - ABG Interpretation ABG results: PT/INR, D-dimer PT 13.5 Seconds (9.4-12.1) H 03/23/19 04:19 Consult Discharge Plan - Plan Referrals: Anshu Hassan, [Partnered Physician] - (follow up of t12 compression fracture Web request entered. Office will call with date and time of appointment.) Castro Souza, DO [Primary Care Provider] - Arleth Pacheco MD [Partnered Physician] - (outpt EGD Web request entered. Office will call with date and time of appointment. ) - Attending Attestation I examined this patient and my medical decision-making was reviewed with the Resident Physician Dr Mg. I agree with the documented findings, disposition and treatment plan as described except to the extent set forth below. Mr Miranda is being observed for fall and hemetemesis. He is medically stable for dc to snf with insurance authorization coming through today awake, no family present, cont to try to be active while awaiting placement. pain tolerable. no complaints. remains medically stable for dc to snf gen- alert, awake,appears stated age cv- reg rate and rhythm, normal s1,s2 lungs- ctabl, no wheezing, rhonchi or crackles, normal resp effort on room air abd- soft, non tender, non distended neuro- AAOxperson, place, situation T12 compression fracture - brace confirmed with ortho, fu with pain management outpt Falls, generalized weakness- awaiting snf placement for rehab Hematemesis-no further episodes, hgb stable, - PPI, seen by GI, outpt EGD Hepatitis A- supportive care, GI evaluated, repeat cmp improved Acute GIB anemia,stable, did not require prbcs- PPI, egd as above Incidental possible cholecystitis on prior imaging this admission- pt has no symptoms, will defer to outpt provider for further monitoring/work up Incidental right renal cyst- fu outpt further diagnoses and plan as noted by resident <Fabrice Mg - Last Filed: 03/30/19 17:18> Hospitalist Progress Note - Encounter Date of Encounter: 03/30/19 Time of Encounter: 10:05 - Subjective Interval History: Patient seen and examined at bedside; he is currently sitting in the chair. He has no complaints. He states that he was able to move back and forth from chair to the bed without difficulty. He states that he still has some mild back pain, but has improved. He has no complaints at this time. Awaiting placement to SNF. Potassium was low today; will replace. - Exam Vitals: Temp Pulse Resp BP Pulse Ox 98.2 F 51 19 127/53 96 03/30/19 11:46 03/30/19 11:46 03/30/19 11:46 03/30/19 11:46 03/30/19 11:46 Exam: General: A&O X3, conversant, no acute distress Head: atraumatic, normocephalic Eye: PERRL, EOMI, conjuntiva pink, sclera anicteric Neck: Supple, trachea midline; No lymphadenopathy Respiratory: CTAB. No accessory muscle use, wheezes, rales, or rhonchi Cardiovascular: RRR, +S1, +S2; no murmurs, rubs, gallops Abdomen: Soft, nontender Extremities: warm, radial pulses palpable and symmetrical Psychiatric: Normal affect, normal mood Skin: Dry, intact - Assessment and Plan (1) Coffee ground emesis Current Visit: Yes Status: Acute Assessment and Plan: - Initially presented with a complaint of coffee-ground emesis - Initially presented to the [facility]; gastric occult blood test was positive - Patient denies having any episodes of vomiting or other signs of bleeding - Hemoglobin appears stable at this time Plan: - GI recommend EGD as an outpatient - Diet will be advanced to full liquid diet today - Oral omeprazole - Zofran PRN (2) Compression fx, thoracic spine Current Visit: Yes Status: Acute Assessment and Plan: - X-ray of thoracic spine on 03/24/19 demonstrated the following: Approximately 60% anterior wedging of T12 progressed comparing with recent comparison studies - Brace has been fitted by orthopedics (3) CONNIE (acute kidney injury) Current Visit: Yes Status: Acute Assessment and Plan: - Hepatitis screen positive for hepatitis A - Supportive care - Follow up with GI in the outpatient setting (4) Hepatitis A Current Visit: Yes Status: Acute Assessment and Plan: - Potassium was low on a.m. labs - Will replace - Time Spent with Patient Total time spent is greater than 50% in coordination of care (as documented) at patient's floor/unit and/or counseling patient: Internal Medicine: Result - Labs CBC & Chem 7: 03/30/19 05:32 03/30/19 05:32 Labs: Short CBC 03/30/19 Range/Units 05:32 WBC 4.5 (4.3-11.1) K/mcL Hgb 11.3 L (12.9-16.9) g/dL Hct 34.4 L (37.5-50.1) % Plt Count 160 (140-400) K/mcL Neutrophils # 3.1 (1.6-8.9) K/mcL BMP 03/30/19 05:32 Sodium 136 Potassium 3.4 L Chloride 104 Carbon Dioxide 26 BUN 16 Creatinine 0.96 Glucose 101 Calcium 8.0 L - ABG Interpretation ABG results: PT/INR, D-dimer PT 13.5 Seconds (9.4-12.1) H 03/23/19 04:19 <Taina Paz - Last Filed: 03/30/19 15:39> (1) Hypertension Qualifiers: Hypertension type: essential hypertension Qualified Code(s): I10 - Essential (primary) hypertension (3) Hyperlipidemia Qualifiers: Hyperlipidemia type: unspecified Qualified Code(s): E78.5 - Hyperlipidemia, unspecified (5) Stroke Qualifiers: CVA mechanism: unspecified Qualified Code(s): I63.9 - Cerebral infarction, unspecified (10) Hepatitis A Qualifiers: Hepatic coma status: without hepatic coma Qualified Code(s): B15.9 - Hepatitis A without hepatic coma <Fabrice Mg - Last Filed: 03/30/19 17:18> (4) Hepatitis A Qualifiers: Hepatic coma status: without hepatic coma Qualified Code(s): B15.9 - Hepatitis A without hepatic coma
== END 2019-03-30 18:58 ==
LOC: 3ANU → SUATTDRO 03:24
PROVIDERS: ADMIT Internal Medicine; ATTEND Internal Medicine